=== PATIENT | female | born 1950 | race Two or more races ===

== ENCOUNTER 2024-02-02 10:04 | Inpatient (IN) | payer OTHER ==
[~2024-02-02] VITALS: Ht 152.4 cm; Wt 53.5 kg
[2024-02-02] MEDS ORDERED: ALLOPURINOL100 MG PO (10:20)
[2024-02-02] MEDS ORDERED: LOSARTAN POTAS100 MG PO (10:20)
[2024-02-02] MEDS ORDERED: HEMATRON-AF TABLETS (10:21)
[2024-02-02] MEDS ORDERED: SIMVASTATIN10 MG PO (10:21)
[2024-02-02] MEDS ORDERED: GLIPIZIDE ER2.5 MG PO (10:21)
[2024-02-02] MEDS ORDERED: ONDANSETRON ODT8 MG PO (10:22)
[2024-02-02] MEDS ORDERED: 0.9 % SODIUM CHLORIDE 1,000 ML IV STA (12:02)
[2024-02-02] MEDS ORDERED: FAMOtidine 10 MG/ML (4ML VIAL) IV STA (12:03)
[2024-02-02] MEDS ORDERED: MORPHINE SULFATE 4 MG/ML VIAL IV STA (12:03)
[2024-02-02] MEDS ORDERED: PROMETHAZINE HCL 25 MG/ML AMPUL IM STA (12:07)
[2024-02-02] MEDS ORDERED: PROMETHAZINE HCL 25 MG/ML AMPUL ONE (12:33)
[2024-02-02] MEDS ORDERED: BARIUM SULFATE 450 ML ORAL.SUSP PO ONE (12:34)
[2024-02-02] MEDS ORDERED: FAMOTIDINE/PF 20 MG/2 ML VIAL ONE (12:34)
[2024-02-02 13:20] LABS: HEMATOCRIT 39.3 % (36.0-45.00); HEMOGLOBIN 12.5 g/dL (12.0-15.00); MEAN CELL VOLUME 90.4 fL (80.00-100.00); MEAN CORPUSCULAR HEMOGLOBIN 28.8 pg (27.00-32.0); MEAN CORPUSCULAR HGB CONC 31.9 g/dl (32.0-36.0); PLATELET COUNT 271 K/uL (150-450); RED BLOOD COUNT 4.35 M/uL (4.00-6.00); RED CELL DISTRIBUTION WIDTH 23.6 % (11.5-14.5)
[2024-02-02 15:08] LABS: ALBUMIN 3.2 gm/dL (3.4-5.0); BILIRUBIN TOTAL 1.37 mg/dL (0.3-1.2); BILIRUBIN,CONJUGATED 0.55 mg/dL (0.0-0.2); BILIRUBIN,UNCONJUGATED 0.82 mg/dL (0.0-0.6); CREATININE SERUM 1.11 mg/dL (0.55-1.02); GFR 47.92; POTASSIUM 3.14 mEq/L (3.5-5.1); TOTAL PROTEIN 6.8 gm/dL (6.4-8.2)
[2024-02-02] MEDS ORDERED: INSULIN LISPRO 1,000 UNIT/10 ML UNITS SUBCUTANEO PRN (22:00)
[2024-02-02] MEDS ORDERED: DEXTROSE 50 % IN WATER 0.5 G/ML DISP.SYRIN IV PRN (22:00)
[2024-02-02] MEDS ORDERED: DEXTROSE 5 % AND 0.9 % NACL 1,000 ML IV SCH (22:00)
[2024-02-02] MEDS ORDERED: POTASSIUM CHLORIDE IN WATER 100 ML IV SCH (22:06)
[2024-02-02] MEDS ORDERED: CIPROFLOXACIN IN 5 % DEXTROSE 200 ML IV SCH (22:11)
[2024-02-02] MEDS ORDERED: METRONIDAZOLE/SODIUM CHLORIDE 100 ML IV SCH (22:11)
[2024-02-02] MEDS ORDERED: hydrALAZINE HCL 20 MG VIAL IV PRN (22:15)
[2024-02-02] MEDS ORDERED: ACETAMINOPHEN 500 MG GEL..CAP PO PRN (22:15)
[2024-02-02] MEDS ORDERED: ONDANSETRON HCL 4 MG in 0.9 % SODIUM CHLORIDE 50 ML IV PRN (22:15)
[2024-02-03] MEDS ORDERED: MORPHINE SULFATE 2 MG/ML CARTRIDGE IV SCH
[2024-02-03 02:39] LABS: URINE APPEARANCE Clear; URINE BILIRRUBIN Negative (NEGATIVE); URINE BLOOD Negative; URINE COLOR Yellow; URINE GLUCOSE Negative (NEGATIVE); URINE KETONE Trace (NEGATIVE); URINE LEUKOCYTE Negative; URINE NITRATE Negative; URINE PROTEIN Trace (NEGATIVE)
[2024-02-03 02:42] LABS: URINE BACTERIA 12.5 uL (0.0-1933); URINE RBC 21.2 uL (0.0-20.8); URINE WBC 3.7 uL (0.0-23.2)
[2024-02-03 07:55] LABS: URINE APPEARANCE Clear; URINE BILIRRUBIN Negative (NEGATIVE); URINE BLOOD Small; URINE COLOR Yellow; URINE GLUCOSE Negative (NEGATIVE); URINE KETONE 15 (NEGATIVE); URINE LEUKOCYTE Trace; URINE NITRATE Negative; URINE PROTEIN 30 (NEGATIVE)
[2024-02-03 07:58] LABS: URINE BACTERIA 166.3 uL (0.0-1933); URINE RBC 65.3 uL (0.0-20.8); URINE WBC 50.6 uL (0.0-23.2)
[2024-02-03 08:06] LABS: URINE CAST 0.76 uL (0.0-1.40)
[2024-02-03 08:22] LABS: INR 1.02; PARTIAL THROMBOPLASTIN TIME 28.8 SECONDS (22.0-34.0); PROTHROMBIN TIME 10.7 SECONDS (9.0-11.5)
[2024-02-03 08:45] LABS: HEMATOCRIT 33.7 % (36.0-45.00); HEMOGLOBIN 11.1 g/dL (12.0-15.00); MEAN CELL VOLUME 89.2 fL (80.00-100.00); MEAN CORPUSCULAR HEMOGLOBIN 29.3 pg (27.00-32.0); MEAN CORPUSCULAR HGB CONC 32.8 g/dl (32.0-36.0); PLATELET COUNT 259 K/uL (150-450); RED BLOOD COUNT 3.78 M/uL (4.00-6.00); RED CELL DISTRIBUTION WIDTH 22.8 % (11.5-14.5)
[2024-02-03 08:46] LABS: ALBUMIN 2.9 gm/dL (3.4-5.0); BILIRUBIN TOTAL 1.07 mg/dL (0.3-1.2); BILIRUBIN,CONJUGATED 0.46 mg/dL (0.0-0.2); BILIRUBIN,UNCONJUGATED 0.61 mg/dL (0.0-0.6); CALCIUM 8.5 mg/dL (8.5-10.1); CHOL HDL RATIO 2.3 (0-5.0); CREATININE SERUM 0.45 mg/dL (0.55-1.02); GFR 135.83; GLOBULINA 2.7 G/DL (2.4-3.5); TOTAL PROTEIN 5.6 gm/dL (6.4-8.2)
[2024-02-03 08:51] LABS: ERYTHROCYTE SEDIMENTATION RATE 15 mm/hr
[2024-02-03] MEDS ORDERED: LOSARTAN POTASSIUM 100 MG TABLET PO SCH (09:00)
[2024-02-03] MEDS ORDERED: ALLOPURINOL 100 MG TABLET PO SCH (09:00)
[2024-02-03] MEDS ORDERED: ENOXAPARIN SODIUM 40 MG/0.4 ML SYRINGE SUBCUTANEO SCH (09:00)
[2024-02-03] MEDS ORDERED: FAMOTIDINE/PF 20 MG in 0.9 % SODIUM CHLORIDE 8 ML IV PUSH SCH (09:00)
[2024-02-03] MEDS ORDERED: FAMOTIDINE/PF 20 MG/2 ML VIAL ONE ×2 (09:09→19:19)
[2024-02-03 09:49] LABS: C-REACTIVE PROTEIN 1.54 MG/DL (0.00-0.29); POTASSIUM 2.78 mEq/L (3.5-5.1)
[2024-02-03] MEDS ORDERED: POTASSIUM CHLORIDE IN WATER 40 MEQ/100 ML PIGGYBAG IV SCH (14:00)
[2024-02-03] MEDS ORDERED: SIMVASTATIN 10 MG TABLET PO SCH (17:00)
[2024-02-04] MEDS ORDERED: FAMOTIDINE/PF 20 MG/2 ML VIAL ONE ×2 (08:02→13:38)
[2024-02-04 08:07] LABS: CREATININE SERUM 0.56 mg/dL (0.55-1.02); GFR 105.53; POTASSIUM 3.78 mEq/L (3.5-5.1)
[2024-02-04] MEDS ORDERED: CEFTRIAXONE SODIUM 2,000 MG VIAL IV SCH (09:00)
[2024-02-04] MEDS ORDERED: AMLODIPINE BESYLATE 5 MG TABLET PO SCH (09:00)
[2024-02-04] MEDS ORDERED: ENALAPRILAT DIHYDRATE 1.25 MG/ML VIAL IV ONE (14:30)
[2024-02-04] MEDS ORDERED: SUGAMMADEX SODIUM 200 MG/2 ML VIAL IV ONE (14:30)
[2024-02-04] MEDS ORDERED: SIMETHICONE 125 MG CAPSULE PO SCH (17:00)
[2024-02-04] MEDS ORDERED: SUCRALFATE 1 G TABLET PO SCH (17:00)
[2024-02-04] MEDS ORDERED: REMDESIVIR 100 MG VIAL IV ONE (22:30)
[2024-02-05] MEDS ORDERED: LACTOBACILLUS ACIDOPHILUS 1 CAP CAP PO SCH (09:00)
[2024-02-06] MEDS ORDERED: REMDESIVIR 100 MG VIAL IV SCH (09:00)
[2024-02-07 07:26] LABS: ALBUMIN 1.9 gm/dL (3.4-5.0); BILIRUBIN TOTAL 0.28 mg/dL (0.3-1.2); CALCIUM 7.8 mg/dL (8.5-10.1); CREATININE SERUM 0.32 mg/dL (0.55-1.02); GFR 201.3; GLOBULINA 2.3 G/DL (2.4-3.5); TOTAL PROTEIN 4.2 gm/dL (6.4-8.2)
[2024-02-07 07:29] LABS: HEMATOCRIT 29.6 % (36.0-45.00); HEMOGLOBIN 9.6 g/dL (12.0-15.00); MEAN CELL VOLUME 89.4 fL (80.00-100.00); MEAN CORPUSCULAR HEMOGLOBIN 28.9 pg (27.00-32.0); MEAN CORPUSCULAR HGB CONC 32.4 g/dl (32.0-36.0); PLATELET COUNT 211 K/uL (150-450); RED BLOOD COUNT 3.31 M/uL (4.00-6.00); RED CELL DISTRIBUTION WIDTH 22.2 % (11.5-14.5)
[2024-02-07 08:08] LABS: POTASSIUM 2.74 mEq/L (3.5-5.1)
[2024-02-07] MEDS ORDERED: POTASSIUM BICARBONATE/CIT AC 25 MEQ TABLET.EFF PO NR (08:30)
[2024-02-07] MEDS ORDERED: MAGNESIUM SULFATE IN WATER 2 GM/50 ML PIGGYBAG IV NR (08:30)
[2024-02-07] MEDS ORDERED: POTASSIUM CHLORIDE IN WATER 40 MEQ/100 ML PIGGYBAG IV SCH (12:00)
[2024-02-08 15:37] LABS: CALCIUM 7.7 mg/dL (8.5-10.1); MAGNESIUM 1.5 mg/dL (1.8-2.4)
[2024-02-08 15:38] LABS: CREATININE SERUM 0.28 mg/dL (0.55-1.02); GFR 234.85
[2024-02-08 15:42] LABS: POTASSIUM 2.58 mEq/L (3.5-5.1)
[2024-02-08] MEDS ORDERED: METROnidazole 500 MG TABLET PO SCH (17:00)
[2024-02-09] MEDS ORDERED: POTASSIUM CHLORIDE IN WATER 40 MEQ/100 ML PIGGYBAG IV ONE (07:30)
[2024-02-09 13:04] LABS: CALCIUM 7.8 mg/dL (8.5-10.1); CREATININE SERUM 0.39 mg/dL (0.55-1.02); GFR 160.21
[2024-02-09] MEDS ORDERED: POTASSIUM CHLORIDE IN WATER 100 ML IV NR (15:45)
[2024-02-10 09:22] LABS: CALCIUM 7.3 mg/dL (8.5-10.1); CREATININE SERUM 0.34 mg/dL (0.55-1.02); GFR 187.7
[2024-02-10 10:22] LABS: MAGNESIUM 1.1 mg/dL (1.8-2.4); POTASSIUM 2.01 mEq/L (3.5-5.1)
[2024-02-10] MEDS ORDERED: POTASSIUM CHLORIDE/D5-0.45NACL 40 MEQ/1,000 ML PIGGYBAG IV SCH (13:30)
[2024-02-12] MEDS ORDERED: POTASSIUM CHLORIDE/D5-0.45NACL 40 MEQ/1,000 ML PIGGYBAG IV SCH (07:45)
[2024-02-12] MEDS ORDERED: MAGNESIUM SULFATE IN WATER 2 GM/50 ML PIGGYBAG IV NR (07:45)
[2024-02-12] MEDS ORDERED: SPIRONOLACTONE 25 MG TABLET PO SCH (09:00)
[2024-02-12] MEDS ORDERED: BISMUTH SUBSALICYLATE 524 MG/30 ML BLIST.PACK PO PRN (13:00)
[2024-02-12] MEDS ORDERED: LACTOBACILLUS ACIDOPHILUS 1 CAP CAP PO SCH (13:00)
[2024-02-12] MEDS ORDERED: MAGNESIUM SULFATE IN WATER 2 GM/50 ML PIGGYBAG IV SCH (14:00)
[2024-02-12] MEDS ORDERED: POTASSIUM CHLORIDE IN WATER 40 MEQ/100 ML PIGGYBAG IV SCH (14:00)
[2024-02-13 14:46] LABS: HEMATOCRIT 29.6 % (36.0-45.00); MEAN CELL VOLUME 90.3 fL (80.00-100.00); MEAN CORPUSCULAR HGB CONC 32.2 g/dl (32.0-36.0); PLATELET COUNT 212 K/uL (150-450); RED BLOOD COUNT 3.27 M/uL (4.00-6.00); RED CELL DISTRIBUTION WIDTH 22.5 % (11.5-14.5)
[2024-02-13 14:48] LABS: HEMOGLOBIN 9.5 g/dL (12.0-15.00)
[2024-02-13 15:12] LABS: ALBUMIN 1.8 gm/dL (3.4-5.0); BILIRUBIN TOTAL 0.29 mg/dL (0.3-1.2); CALCIUM 7.6 mg/dL (8.5-10.1); CREATININE SERUM 0.32 mg/dL (0.55-1.02); GFR 201.3; GLOBULINA 2.2 G/DL (2.4-3.5); POTASSIUM 3.21 mEq/L (3.5-5.1)
[2024-02-13] MEDS ORDERED: SPIRONOLACTONE 25 MG TABLET PO SCH (21:43)
[2024-02-14 08:36] LABS: ALBUMIN 1.9 gm/dL (3.4-5.0); CALCIUM 7.9 mg/dL (8.5-10.1); CREATININE SERUM 0.35 mg/dL (0.55-1.02); GFR 181.53; PHOSPHOROUS 3.2 mg/dL (2.5-4.9)
== END 2024-02-14 20:09 | disposition home or self-care (01) | DRG 329 ==
LOC: ER 10:04 → MEDI 22:14 → MEDJ 22:14 → MEDI 23:34 → MEDJ 02-03 01:09
PROVIDERS: General Practice; Internal Medicine; Internal Medicine Nephrology; Surgery; ADMIT Internal Medicine; ATTEND Internal Medicine
PROC: BW21YZZ Computerized Tomography (CT Scan) of Abdomen and Pelvis using Other Contrast (ICD-10-PCS; 2024-02-02)
PROC: 4A12X4Z Monitoring of Cardiac Electrical Activity, External Approach (ICD-10-PCS; 2024-02-03)
PROC: 0D1N4Z4 Bypass Sigmoid Colon to Cutaneous, Percutaneous Endoscopic Approach (ICD-10-PCS; principal; 2024-02-04 08:00)
PROC: XW033E5 Introduction of Remdesivir Anti-infective into Peripheral Vein, Percutaneous Approach, New Technology Group 5 (ICD-10-PCS; 2024-02-06)
PROC: 02HV33Z Insertion of Infusion Device into Superior Vena Cava, Percutaneous Approach (ICD-10-PCS; 2024-02-12)
DX: K55.9 Vascular disorder of intestine, unspecified (principal); U07.1 COVID-19; C20 Malignant neoplasm of rectum; N17.9 Acute kidney failure, unspecified; N39.0 Urinary tract infection, site not specified; C79.9 Secondary malignant neoplasm of unspecified site; K56.609 Unspecified intestinal obstruction, unspecified as to partial versus complete obstruction; K62.4 Stenosis of anus and rectum; E87.6 Hypokalemia

== ENCOUNTER 2024-04-14 03:41 | Emergency (ER) | payer OTHER ==
[~2024-04-14] VITALS: Ht 154.9 cm; Wt 45.8 kg
[~2024-04-14 03:41] MED LIST: ALLOPURINOL100 MG PO; GLIPIZIDE ER2.5 MG PO; HEMATRON-AF TABLETS; LOSARTAN POTAS100 MG PO; ONDANSETRON ODT8 MG PO; SIMVASTATIN10 MG PO
[2024-04-14] MEDS ORDERED: 0.9 % SODIUM CHLORIDE 1,000 ML IV STA (06:07)
[2024-04-14 07:52] LABS: HEMATOCRIT 27.5 % (36.0-45.00); HEMOGLOBIN 9.3 g/dL (12.0-15.00); MEAN CELL VOLUME 93.2 fL (80.00-100.00); MEAN CORPUSCULAR HEMOGLOBIN 31.4 pg (27.00-32.0); MEAN CORPUSCULAR HGB CONC 33.7 g/dl (32.0-36.0); PLATELET COUNT 173 K/uL (150-450); RED BLOOD COUNT 2.95 M/uL (4.00-6.00)
[2024-04-14 07:56] LABS: RED CELL DISTRIBUTION WIDTH 16.2 % (11.5-14.5)
[2024-04-14 08:26] LABS: ALBUMIN 2.7 gm/dL (3.4-5.0); BILIRUBIN TOTAL 0.33 mg/dL (0.3-1.2); CALCIUM 8.6 mg/dL (8.5-10.1); CREATININE SERUM 0.65 mg/dL (0.55-1.02); GFR 88.62; POTASSIUM 3.84 mEq/L (3.5-5.1); TOTAL PROTEIN 5.7 gm/dL (6.4-8.2)
== END 2024-04-14 10:24 | disposition home or self-care (01) ==
LOC: ER 03:43
DX: K59.00 Constipation, unspecified (principal); Z85.89 Personal history of malignant neoplasm of other organs and systems
CPT/HCPCS: 36415; 74022; 96365; 96366; 99283; J7030

== ENCOUNTER 2024-12-20 08:00 | Outpatient (CLI) | payer OTHER ==
[~2024-12-20] VITALS: Ht 160 cm; Wt 53.5 kg
[2024-12-20 12:48] LABS: BASO % 0.6 % (0.1-1.2); EOS # 0.09 (0.04-0.54); EOS % 1.5 % (0.7-7.0); HEMATOCRIT 37.1 % (34.1-44.9); HEMOGLOBIN 11.8 g/dL (11.2-15.7); LYMPH # 2.03 (1.18-3.74); LYMPH % 32.8 % (19.3-53.1); MEAN CORPUSCULAR HEMOGLOBIN 29.7 pg (25.6-32.2); MONO # 0.77 (0.24-0.82); NEUT # 3.24 (1.56-6.13); NEUT % 52.4 % (34.0-71.1); PLATELET COUNT 217 K/uL (163-369); RED BLOOD COUNT 3.97 M/uL (3.93-5.22); RED CELL DISTRIBUTION WIDTH 16.1 % (11.6-14.4)
[2024-12-20 12:50] VITALS: BP 170/88
[2024-12-20 13:09] LABS: URINE APPEARANCE Clear; URINE BILIRRUBIN Negative (NEGATIVE); URINE BLOOD Small; URINE COLOR Yellow; URINE GLUCOSE Negative (NEGATIVE); URINE KETONE Trace (NEGATIVE); URINE LEUKOCYTE Small; URINE NITRATE Negative; URINE PROTEIN Trace (NEGATIVE); URINE UROBILINOGEN 0.2 E.U./dl
[2024-12-20 13:12] LABS: URINE BACTERIA 567.9 uL (0.0-1933); URINE EPITHELIAL CELLS 21.6 uL (0.0-38.8); URINE RBC 35.9 uL (0.0-20.8)
[2024-12-20 13:14] LABS: MONO % 12.5 % (4.7-12.5)
[2024-12-20 13:18] LABS: INR < 0.93; PARTIAL THROMBOPLASTIN TIME 25.8 SECONDS (22.0-34.0); PROTHROMBIN TIME 10.1 SECONDS (9.0-11.5)
[2024-12-20 13:32] LABS: URINE CAST 0.14 uL (0.0-1.40)
[2024-12-20 13:37] LABS: ALBUMIN 3.6 gm/dL (3.4-5.0); BILIRUBIN TOTAL 0.47 mg/dL (0.3-1.2); CALCIUM 9.5 mg/dL (8.5-10.1); CREATININE SERUM 0.66 mg/dL (0.55-1.02); GFR 87.07; GLOBULINA 3.2 G/DL (2.4-3.5); POTASSIUM 4.2 mEq/L (3.5-5.1); TOTAL PROTEIN 6.8 gm/dL (6.4-8.2)
[2024-12-20 13:40] LABS: TSH 3.43 uIU/mL (0.358-3.74)
[2024-12-20 15:46] LABS: RH POSITIVE
== END 2024-12-20 08:01 | disposition home or self-care (01) ==
LOC: RAD 08:00 → EDSTATUS 12-30 07:00 → SURH 12-30 07:00
PROVIDERS: ATTEND Colon & Rectal Surgery
DX: K94.09 Other complications of colostomy (principal); C20 Malignant neoplasm of rectum; K43.5 Parastomal hernia without obstruction or gangrene; K59.00 Constipation, unspecified; N39.0 Urinary tract infection, site not specified; K62.5 Hemorrhage of anus and rectum; D59.8 Other acquired hemolytic anemias; Z11.59 Encounter for screening for other viral diseases; Z20.828 Contact with and (suspected) exposure to other viral communicable diseases; D68.9 Coagulation defect, unspecified; N64.4 Mastodynia

== ENCOUNTER 2025-02-27 09:15 | Inpatient (IN) | payer OTHER ==
[~2025-02-27] VITALS: Ht 165.1 cm; Wt 54.9 kg
[2025-02-27 10:22] VITALS: BP 150/85
[2025-02-27] MEDS ORDERED: GLIPIZIDE ER2.5 MG PO (10:23)
[2025-02-27 10:32] LABS: BASO % 0.6 % (0.1-1.2); EOS # 0.11 (0.04-0.54); EOS % 1.4 % (0.7-7.0); LYMPH # 2.21 (1.18-3.74); LYMPH % 28.6 % (19.3-53.1); MEAN PLATELET VOLUME 9.50 fl (9.4-12.4); MONO # 0.42 (0.24-0.82); MONO % 5.4 % (4.7-12.5); NEUT # 4.87 (1.56-6.13); NEUT % 63.2 % (34.0-71.1); RED CELL DISTRIBUTION WIDTH 14.6 % (11.6-14.4)
[2025-02-27 10:36] LABS: URINE APPEARANCE Clear; URINE BILIRRUBIN Negative (NEGATIVE); URINE BLOOD Moderate; URINE GLUCOSE Negative (NEGATIVE); URINE KETONE Trace (NEGATIVE); URINE LEUKOCYTE Moderate; URINE NITRATE Negative; URINE PROTEIN Trace (NEGATIVE); URINE UROBILINOGEN 0.2 E.U./dl
[2025-02-27 10:38] LABS: URINE BACTERIA 602.3 uL (0.0-1933); URINE EPITHELIAL CELLS 50.6 uL (0.0-38.8); URINE RBC 8.5 uL (0.0-20.8); URINE WBC 148.1 uL (0.0-23.2)
[2025-02-27 11:08] LABS: INR 0.96
[2025-02-27 11:11] LABS: URINE CAST 0.58 uL (0.0-1.40)
[2025-02-27 11:12] LABS: URINE COLOR YelloW
[2025-02-27 11:41] LABS: ALT/SGPT 12.0 U/L (12-78); AST/SGOT 15.0 U/L (15-37); BILIRUBIN TOTAL 0.8 mg/dL (0.3-1.2); BUN CREA RATIO 24.0 (7.0-25.0); CREATININE SERUM 0.76 mg/dL (0.55-1.02); GFR 73.79; GLOBULINA 3.0 G/DL (2.4-3.5); GLUCOSE FASTING 83.0 mg/dL (65-100); OSMOLALITY SERUM 284.0 MOSM/KG (275-295); TSH 4.48 uIU/mL (0.358-3.74)
[2025-02-27 12:09] LABS: RH POSITIVE
[2025-03-07] MEDS ORDERED: CHLORHEXIDINE GLUCONATE 120 ML BOTTLE TOP ONE (10:30)
[2025-03-07] MEDS ORDERED: CEFTRIAXONE SODIUM 2,000 MG VIAL IV ONE (10:30)
[2025-03-07] MEDS ORDERED: METRONIDAZOLE/SODIUM CHLORIDE 500 MG/100 ML PIGGYBACK IV ONE (10:30)
[2025-03-07 11:40] LABS: URINE APPEARANCE Clear; URINE BILIRRUBIN Negative (NEGATIVE); URINE BLOOD Moderate; URINE COLOR Yellow; URINE GLUCOSE Negative (NEGATIVE); URINE KETONE Negative (NEGATIVE); URINE LEUKOCYTE Negative; URINE NITRATE Negative; URINE PROTEIN Trace (NEGATIVE); URINE UROBILINOGEN 0.2 E.U./dl
[2025-03-07 11:41] LABS: URINE BACTERIA 10.7 uL (0.0-1933); URINE EPITHELIAL CELLS 1.6 uL (0.0-38.8); URINE RBC 20.6 uL (0.0-20.8); URINE WBC 4.6 uL (0.0-23.2)
[2025-03-07 12:03] LABS: URINE CAST 0.00 uL (0.0-1.40)
[2025-03-07] MEDS ORDERED: DEXTROSE 50 % IN WATER 0.5 G/ML VIAL IV PRN (14:45)
[2025-03-07] MEDS ORDERED: RINGERS SOLUTION,LACTATED 1,000 ML IV SCH (14:45)
[2025-03-07] MEDS ORDERED: MORPHINE SULFATE 2 MG/ML CARTRIDGE IV PRN (14:45)
[2025-03-07] MEDS ORDERED: ONDANSETRON HCL 2 MG/ML VIAL IV PRN (14:45)
[2025-03-07] MEDS ORDERED: OxyCODONE HCL 5 MG TABLET (ROXICODONE) PO PRN (15:00)
[2025-03-07] MEDS ORDERED: hydrALAZINE HCL 20 MG VIAL IV ONE (15:00)
[2025-03-07] MEDS ORDERED: MORPHINE SULFATE 2 MG/ML CARTRIDGE IV ONE (16:20)
[2025-03-07 16:45] VITALS: BP 138/74; O2SAT 98
[2025-03-07 16:52] LABS: BASO % 0.2 % (0.1-1.2); EOS # 0.00 (0.04-0.54); EOS % 0.0 % (0.7-7.0); LYMPH # 1.20 (1.18-3.74); LYMPH % 18.7 % (19.3-53.1); MEAN PLATELET VOLUME 9.70 fl (9.4-12.4); MONO # 0.33 (0.24-0.82); MONO % 5.1 % (4.7-12.5); NEUT # 4.86 (1.56-6.13); NEUT % 75.7 % (34.0-71.1); RED CELL DISTRIBUTION WIDTH 15.4 % (11.6-14.4)
[2025-03-07 17:11] LABS: BUN CREA RATIO 24.0 (7.0-25.0); CREATININE SERUM 0.76 mg/dL (0.55-1.02); GFR 73.79; GLUCOSE FASTING 163.0 mg/dL (65-100); OSMOLALITY SERUM 285.0 MOSM/KG (275-295)
[2025-03-07] MEDS ORDERED: ACETAMINOPHEN 500 MG GEL..CAP PO SCH (18:00)
[2025-03-07] MEDS ORDERED: CIPROFLOXACIN IN 5 % DEXTROSE 400 MG/200 ML PIGGYBAG IV SCH (21:00)
[2025-03-07] MEDS ORDERED: FAMOTIDINE/PF 20 MG/2 ML VIAL IV SCH (21:00)
[2025-03-08 01:02] VITALS: BP 136/80; O2SAT 100
[2025-03-08 07:29] LABS: BASO % 0.0 % (0.1-1.2); EOS # 0.00 (0.04-0.54); EOS % 0.0 % (0.7-7.0); LYMPH # 1.51 (1.18-3.74); LYMPH % 26.8 % (19.3-53.1); MEAN PLATELET VOLUME 10.20 fl (9.4-12.4); MONO # 0.52 (0.24-0.82); MONO % 9.2 % (4.7-12.5); NEUT # 3.58 (1.56-6.13); NEUT % 63.6 % (34.0-71.1); RED CELL DISTRIBUTION WIDTH 15.4 % (11.6-14.4)
[2025-03-08 08:04] LABS: BUN CREA RATIO 23.0 (7.0-25.0); CREATININE SERUM 0.64 mg/dL (0.55-1.02); GFR 89.98; GLUCOSE FASTING 101.0 mg/dL (65-100); OSMOLALITY SERUM 280.0 MOSM/KG (275-295)
[2025-03-08] MEDS ORDERED: MAGNESIUM CHLORIDE 70 MG TABLET.DR PO SCH (09:00)
[2025-03-08] MEDS ORDERED: ALLOPURINOL 100 MG TABLET PO SCH (09:00)
[2025-03-08] MEDS ORDERED: LACTOBACILLUS ACIDOPHILUS 1 CAP CAP PO SCH (09:00)
[2025-03-08] MEDS ORDERED: LOSARTAN POTASSIUM 100 MG TABLET PO SCH (09:00)
[2025-03-08 16:00] VITALS: BP 160/80; O2SAT 98
[2025-03-08] MEDS ORDERED: ENOXAPARIN SODIUM 40 MG/0.4 ML SYRINGE SUBCUTANEO SCH (17:00)
[2025-03-08] MEDS ORDERED: NAPH,MB-DB/K PH,MBDB 1 PKT PACKET PO SCH (18:29)
[2025-03-08] MEDS ORDERED: POTASSIUM PHOS,M-BASIC-D-BASIC 15 MM in 0.9 % SODIUM CHLORIDE 250 ML IV ONE (18:30)
[2025-03-09 00:50] VITALS: BP 131/79; O2SAT 98
[2025-03-09 08:21] LABS: BASO % 0.6 % (0.1-1.2); EOS # 0.04 (0.04-0.54); EOS % 0.8 % (0.7-7.0); LYMPH # 1.32 (1.18-3.74); LYMPH % 25.7 % (19.3-53.1); MEAN PLATELET VOLUME 10.70 fl (9.4-12.4); MONO # 0.60 (0.24-0.82); MONO % 11.7 % (4.7-12.5); NEUT # 3.12 (1.56-6.13); NEUT % 60.8 % (34.0-71.1); RED CELL DISTRIBUTION WIDTH 15.5 % (11.6-14.4)
[2025-03-09 08:44] LABS: BUN CREA RATIO 31.0 (7.0-25.0); CREATININE SERUM 0.45 mg/dL (0.55-1.02); GFR 135.1; GLUCOSE FASTING 78.0 mg/dL (65-100); OSMOLALITY SERUM 284.0 MOSM/KG (275-295)
[2025-03-09 08:47] VITALS: BP 151/79; O2SAT 97
[2025-03-09 17:49] VITALS: BP 150/80; O2SAT 97
[2025-03-09] MEDS ORDERED: NAPH,MB-DB/K PH,MBDB 1 PKT PACKET PO SCH (19:32)
[2025-03-09] MEDS ORDERED: POTASSIUM PHOS,M-BASIC-D-BASIC 15 MM in 0.9 % SODIUM CHLORIDE 250 ML IV ONE (19:45)
[2025-03-10 00:35] VITALS: BP 132/78; O2SAT 97
== END 2025-03-10 10:42 | disposition home or self-care (01) | DRG 330 ==
LOC: SURH 03-07 07:00 → SURG 03-07 08:00 → O/R 03-07 08:00 → SURH 03-07 09:15 → SURG 03-07 10:28
PROVIDERS: ADMIT Colon & Rectal Surgery; ATTEND Colon & Rectal Surgery
PROC: 0DNW4ZZ Release Peritoneum, Percutaneous Endoscopic Approach (ICD-10-PCS; 2025-03-07)
PROC: 0WQFXZ2 Repair Abdominal Wall, Stoma, External Approach (ICD-10-PCS; 2025-03-07)
PROC: 0WQF4ZZ Repair Abdominal Wall, Percutaneous Endoscopic Approach (ICD-10-PCS; 2025-03-07)
PROC: 0DBE4ZZ Excision of Large Intestine, Percutaneous Endoscopic Approach (ICD-10-PCS; principal; 2025-03-07 07:00)
DX: K94.09 Other complications of colostomy (principal); C79.9 Secondary malignant neoplasm of unspecified site; N17.9 Acute kidney failure, unspecified; K56.609 Unspecified intestinal obstruction, unspecified as to partial versus complete obstruction; K43.5 Parastomal hernia without obstruction or gangrene; E87.6 Hypokalemia; Z74.09 Other reduced mobility; I10 Essential (primary) hypertension; E78.00 Pure hypercholesterolemia, unspecified; E11.9 Type 2 diabetes mellitus without complications